=== PATIENT | male | born 1965 | race Caucasian/White ===

== ENCOUNTER 2017-02-02 13:29 | Emergency (ER) | payer OTHER ==
[~2017-02-02] VITALS: Ht 170.2 cm; Wt 80.0 kg
[2017-02-02] MEDS ORDERED: METF500T4 PO (13:35)
[2017-02-02] MEDS ORDERED: HYDR12.529 PO (13:35)
[2017-02-02] MEDS ORDERED: ACETAMINOPHEN 500MG TABLET PO ONE (19:45)
[2017-02-02 23:10] VITALS: BP 157/65
== END 2017-02-02 23:21 | disposition home or self-care (01) ==
LOC: ER 13:29
DX: M25.561 Pain in right knee (principal); M25.512 Pain in left shoulder; I10 Essential (primary) hypertension; E78.00 Pure hypercholesterolemia, unspecified; E11.9 Type 2 diabetes mellitus without complications; M19.012 Primary osteoarthritis, left shoulder; Z88.0 Allergy status to penicillin; W11.XXXA Fall on and from ladder, initial encounter; Y93.89 Activity, other specified; Y92.69 Other specified industrial and construction area as the place of occurrence of the external cause; Y99.8 Other external cause status
CPT/HCPCS: 73030; 73562; 99284; Z7610